=== PATIENT | male | born 2005 | race Caucasian/White ===

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

== ENCOUNTER 2025-11-26 16:09 | Emergency (ER) | payer BC, OTHER ==
[~2025-11-26] VITALS: Ht 188 cm; Wt 155.5 kg
[2025-11-26] MEDS ORDERED: BREAMIS10 MC (18:29)
[2025-11-26] MEDS ORDERED: ALBU8.5H INH (18:29)
[2025-11-26] MEDS ORDERED: MUCI120T PO (18:29)
[2025-11-26] MEDS ORDERED: BENZ200C70 PO (18:29)
[2025-11-26 18:41] VITALS: BP 130/61; TEMP 98; O2SAT 99
[2025-12-02 10:36] LABS: SOFIA COVID ANTIGEN NEGATIVE (NEGATIVE)
== END 2025-11-26 18:42 | disposition home or self-care (01) ==
LOC: M ED 16:09
DX: R05.8 Other specified cough (principal); R06.02 Shortness of breath; R09.81 Nasal congestion; Z88.0 Allergy status to penicillin; G40.909 Epilepsy, unspecified, not intractable, without status epilepticus